=== PATIENT | male | born 1950 | race Caucasian/White ===

== ENCOUNTER 2018-01-29 18:17 | Inpatient (IN) | payer MEDICARE ==
[2018-01-29] MEDS ORDERED: DILTIAZEM DRIP BOLUS FROM BAG 1 MG SOLN IV ONE (18:57)
[2018-01-29] MEDS ORDERED: HEPARIN SODIUM,PORCINE 5,000 UNIT/ML 1 ML VIAL IV ONE (18:58)
[2018-01-29 19:13] LABS: Basophils % (A) 1 %; Eosinophils # (A) 0.1 k/uL (0-0.7); Eosinophils % (A) 1 %; HCT 44.8 % (39.0-53.0); HGB 15.2 gm/dL (13.0-17.5); Lymphocytes # (A) 1.9 k/uL (1.0-4.8); Lymphocytes % (A) 22 %; MCHC 33.9 g/dL (31.0-37.0); MCV 91.4 fL (80.0-100.0); Mean Platelet Volume 8.8; Monocytes # (A) 0.7 k/uL (0-1.0); Monocytes % (A) 8 %; Neutrophils # (A) 5.8 k/uL (1.3-7.7); Neutrophils % (A) 66 %; Platelet Count 209 k/uL (150-450); RDW 13.2 % (11.5-15.5); WBC 8.8 k/uL (3.8-10.6)
[2018-01-29 19:21] LABS: Calcium 9.3 mg/dL (8.4-10.2); Magnesium 2.1 mg/dL (1.6-2.3)
[2018-01-29] MEDS: HEPARIN SOD,PORK IN 0.45% NACL 25,000 UNIT in 0.45% NACL 1 500ML.BAG IV SCH (19:33)
[2018-01-29 19:40] LABS: Partial Thromboplastin Time 22.1 sec (22.0-30.0); Prothrombin Time 9.7 sec (9.0-12.0)
[2018-01-29] MEDS: DILTIAZEM 50 MG in SODIUM CHLORIDE 0.9% 40 ML IV SCH ×2 (19:45→23:21)
[2018-01-29] MEDS ORDERED: NALOXONE 0.4 MG/ML 1 ML VIAL IV PRN (20:00)
--- NOTE | 2018-01-29 20:15 | XR ---
EXAMINATION TYPE: XR chest 2V DATE OF EXAM: 01/29/2018 COMPARISON: NONE HISTORY: Abnormal cardiogram. Chest pain TECHNIQUE: Frontal and lateral views of the chest are obtained. FINDINGS: There is mild linear density at the left cardiac border. There is no heart failure. Heart size is normal. There are chest leads. There is no pleural effusion. Bony thorax is intact. IMPRESSION: Mild lingula scarring or subsegmental atelectasis that is increased compared to old exam . Normal heart.
--- NOTE | 2018-01-29 20:30 | ED ---
General Adult HPI - General Chief complaint: Recheck/Abnormal Lab/Rx Stated complaint: ABNORMAL EKG Source: patient Mode of arrival: ambulatory Limitations: no limitations - History of Present Illness Initial comments: Dictation was produced using [employer] dictation software. please excuse any grammatical, word or spelling errors. Chief Complaint: 67-year-old male presents with palpitations and abnormal EKG History of Present Illness:. 67-year-old male with past medical history of coronary artery disease, hypertension presents with abnormal EKG and palpitations since yesterday. Patient is not sure exactly when symptoms started. He was seen his primary care physician's office where an EKG was performed and is found to have new onset atrial fibrillation. Patient denies any history of A. fib past. He does not take any blood thinners. Denies any chest pain or shortness of breath. The ROS documented in this emergency department record has been reviewed and confirmed by me. Those systems with pertinent positive or negative responses have been documented in the HPI. All other systems are other negative and/or noncontributory. - Related Data Home Medications Medication Instructions Recorded Confirmed Aspirin 325 mg PO DAILY 01/29/18 01/29/18 Atorvastatin [Lipitor] 80 mg PO HS 01/29/18 01/29/18 Hydrochlorothiazide [Hydrodiuril] 25 mg PO DAILY 01/29/18 01/29/18 Lisinopril [Prinivil] 5 mg PO DAILY 01/29/18 01/29/18 Metoprolol Succinate (ER) [Toprol 25 mg PO BID 01/29/18 01/29/18 Xl] Allergies Allergy/AdvReac Type Severity Reaction Status Date / Time No Known Allergies Allergy Verified 01/29/18 18:26 Review of Systems ROS Statement: Those systems with pertinent positive or pertinent negative responses have been documented in the HPI. ROS Other: All systems not noted in ROS Statement are negative. Past Medical History Past Medical History: Coronary Artery Disease (CAD), Hypertension Additional Past Medical History / Comment(s): pt states "heart problems" but is unsure of what the name of it is History of Any Multi-Drug Resistant Organisms: None Reported Past Surgical History: Heart Catheterization With Stent Past Psychological History: No Psychological Hx Reported Smoking Status: Former smoker Past Alcohol Use History: None Reported Past Drug Use History: None Reported General Exam - General Exam Comments Initial Comments: PHYSICAL EXAM: General Impression: Alert and oriented x3, not in acute distress HEENT: Normocephalic atraumatic, extra-ocular movements intact, pupils equal and reactive to light bilaterally, mucous membranes moist. Cardiovascular: Irregularly irregular rhythm Chest: Lungs clear to auscultation bilaterally, no rhonchi, no wheeze, no rales Abdomen: Bowel sounds present, abdomen soft, non-tender, non-distended, no organomegaly Musculoskeletal: Pulses present and equal in all extremities, no peripheral edema Motor: Power 5/5 bilaterally, no focal deficits noted Neurological: CN II-XII grossly intact, no focal motor or sensory deficits noted Skin: Intact with no visualized rashes Psych: Normal affect and mood Limitations: no limitations Course Vital Signs 01/29/18 01/29/18 01/29/18 18:22 19:02 19:04 Temperature 97.9 F Pulse Rate 93 145 H Pulse Rate [ 144 H Drill Sharpener ] Respiratory 18 19 Rate Blood Pressure 141/99 135/67 O2 Sat by Pulse 98 98 Oximetry 01/29/18 01/29/18 19:45 20:12 Temperature Pulse Rate 114 H 100 Pulse Rate [ Drill Sharpener ] Respiratory 18 19 Rate Blood Pressure 144/74 123/59 O2 Sat by Pulse 98 98 Oximetry Medical Decision Making - Medical Decision Making ED course: 67-year-old male with past medical history of coronary artery disease and hypertension presents with clinical presentation consistent to acute onset atrial fibrillation. As upon arrival shows rate of 93. She was in the emergency department his heart rate jumped up into the 140s with irregularly irregular rhythm on the monitor. This is clinically consistent with atrial fibrillation with rapid ventricular rate. Patient had any chest pain. Laboratory evaluation obtained. CBC is unremarkable. Coag panel is unremarkable. His metabolic panel shows no acute abnormalities. Troponin is negative. X-ray of the chest shows mild lingular scarring or subsegmental atelectasis that is worse than previous exam. Patient does not have any infectious complaints. No cough, fever or chest pain. Patient initially started on heparin and Cardizem. Patient had be admitted to cardiac telemetry. Suspicion case with hospitalist was went except admission. EKG Interpretation: A 12 lead EKG was obtained. It was interpreted by myself and attending physician. There is a P wave before every QRS complex. Rate is 131. Rhythm is atrial fibrillation with rapid ventricular rate, QRS 120, QTc 525. . No ST segment depression or elevation. - Lab Data Result diagrams: 01/29/18 18:50 01/29/18 18:50 Lab Results 01/29/18 01/29/18 01/29/18 Range/Units 18:50 18:50 18:50 WBC 8.8 (3.8-10.6) k/uL RBC 4.90 (4.30-5.90) m/uL Hgb 15.2 (13.0-17.5) gm/dL Hct 44.8 (39.0-53.0) % MCV 91.4 (80.0-100.0) fL MCH 31.0 (25.0-35.0) pg MCHC 33.9 (31.0-37.0) g/dL RDW 13.2 (11.5-15.5) % Plt Count 209 (150-450) k/uL Neutrophils % 66 % Lymphocytes % 22 % Monocytes % 8 % Eosinophils % 1 % Basophils % 1 % Neutrophils # 5.8 (1.3-7.7) k/uL Lymphocytes # 1.9 (1.0-4.8) k/uL Monocytes # 0.7 (0-1.0) k/uL Eosinophils # 0.1 (0-0.7) k/uL Basophils # 0.0 (0-0.2) k/uL PT 9.7 (9.0-12.0) sec INR 1.0 (<1.2) APTT 22.1 (22.0-30.0) sec Sodium 141 (137-145) mmol/L Potassium 4.0 (3.5-5.1) mmol/L Chloride 104 (98-107) mmol/L Carbon Dioxide 23 (22-30) mmol/L Anion Gap 14 mmol/L BUN 20 (9-20) mg/dL Creatinine 1.22 (0.66-1.25) mg/dL Est GFR (CKD-EPI)AfAm 72 (>60 ml/min/1.73 sqM) Est GFR (CKD-EPI)NonAf 62 (>60 ml/min/1.73 sqM) Glucose 125 H (74-99) mg/dL Calcium 9.3 (8.4-10.2) mg/dL Magnesium 2.1 (1.6-2.3) mg/dL Troponin I (0.000-0.034) ng/mL 01/29/18 Range/Units 18:50 WBC (3.8-10.6) k/uL RBC (4.30-5.90) m/uL Hgb (13.0-17.5) gm/dL Hct (39.0-53.0) % MCV (80.0-100.0) fL MCH (25.0-35.0) pg MCHC (31.0-37.0) g/dL RDW (11.5-15.5) % Plt Count (150-450) k/uL Neutrophils % % Lymphocytes % % Monocytes % % Eosinophils % % Basophils % % Neutrophils # (1.3-7.7) k/uL Lymphocytes # (1.0-4.8) k/uL Monocytes # (0-1.0) k/uL Eosinophils # (0-0.7) k/uL Basophils # (0-0.2) k/uL PT (9.0-12.0) sec INR (<1.2) APTT (22.0-30.0) sec Sodium (137-145) mmol/L Potassium (3.5-5.1) mmol/L Chloride (98-107) mmol/L Carbon Dioxide (22-30) mmol/L Anion Gap mmol/L BUN (9-20) mg/dL Creatinine (0.66-1.25) mg/dL Est GFR (CKD-EPI)AfAm (>60 ml/min/1.73 sqM) Est GFR (CKD-EPI)NonAf (>60 ml/min/1.73 sqM) Glucose (74-99) mg/dL Calcium (8.4-10.2) mg/dL Magnesium (1.6-2.3) mg/dL Troponin I 0.017 (0.000-0.034) ng/mL Disposition Clinical Impression: Atrial fibrillation with rapid ventricular response Disposition: ADMITTED IP TO THIS HOSP Condition: Fair Referrals: Dominique Espinal DO [Primary Care Provider] - 1-2 days Decision Time: 20:30
[2018-01-29] MEDS: METOPROLOL SUCCINATE (ER) 25 MG TAB.ER.24H PO SCH (23:21)
[2018-01-29] MEDS: ATORVASTATIN 80 MG TAB PO SCH (23:21)
[2018-01-30 01:46] LABS: Basophils % (A) 0 %; Eosinophils # (A) 0.1 k/uL (0-0.7); Eosinophils % (A) 2 %; HCT 41.3 % (39.0-53.0); HGB 13.7 gm/dL (13.0-17.5); Lymphocytes # (A) 1.9 k/uL (1.0-4.8); Lymphocytes % (A) 27 %; MCH 30.8 pg (25.0-35.0); MCHC 33.2 g/dL (31.0-37.0); MCV 92.7 fL (80.0-100.0); Mean Platelet Volume 8.3; Monocytes # (A) 0.5 k/uL (0-1.0); Monocytes % (A) 7 %; Neutrophils # (A) 4.4 k/uL (1.3-7.7); Neutrophils % (A) 62 %; Platelet Count 175 k/uL (150-450); RBC 4.45 m/uL (4.30-5.90); RDW 13.7 % (11.5-15.5); WBC 7.1 k/uL (3.8-10.6)
[2018-01-30] MEDS: HEPARIN SODIUM,PORCINE 5,000 UNIT/ML 1 ML VIAL IV PRN ×2 (03:14→09:03)
[2018-01-30] MEDS: DILTIAZEM 50 MG in SODIUM CHLORIDE 0.9% 40 ML IV SCH ×2 (04:55→11:39)
[2018-01-30] MEDS: METOPROLOL SUCCINATE (ER) 25 MG TAB.ER.24H PO SCH (09:03)
[2018-01-30] MEDS: ASPIRIN 325 MG TAB PO SCH (09:03)
[2018-01-30] MEDS: LISINOPRIL 5 MG TAB PO SCH (09:03)
[2018-01-30] MEDS: HEPARIN SOD,PORK IN 0.45% NACL 25,000 UNIT in 0.45% NACL 1 500ML.BAG IV SCH (13:08)
--- NOTE | 2018-01-30 14:02 | P.CRDCN ---
History of Present Illness Consult date: 01/30/18 Chief complaint: Palpitations History of present illness: This is a pleasant 67-year-old gentleman who sees in the office on a regular basis with a past medical history significant for coronary artery disease and prior coronary artery stenting with unknown details at this point, hypertension, dyslipidemia, and obesity, was referred directly from his primary care physician office to the emergency room for further evaluation of atrial fibrillation. The patient was at his primary care physician office when he was complaining of palpitations. An EKG was performed and revealed A. fib with uncontrolled heart rate and the patient was sent directly to the emergency room. The patient denies having any chest pain or chest discomfort, difficulty breathing, but he was feeling the heart was racing. No dizziness or lightheadedness and no syncope. The EKG showed atrial fibrillation with RBBB. The first set of enzymes came in to be unremarkable. The chest x-ray did not show any acute abnormalities. The patient continues to be in A. fib with heart rate in the 90s. He is on Cardizem at 10 mg per hour. Also he is on metoprolol at 25 mg by mouth twice a day. I will increase the dose of metoprolol into 50 mg by mouth twice a day and try to wean him from the Cardizem drip. He is also on heparin for anticoagulation and I will start the patient on oral anticoagulation and DC the heparin drip. We'll get an echocardiogram was Doppler. Also get a TSH. As an outpatient I recommended the patient to be evaluated for sleep apnea. Past Medical History Past Medical History: Atrial Fibrillation, Coronary Artery Disease (CAD), Chest Pain / Angina, Diabetes Mellitus, Hypertension Additional Past Medical History / Comment(s): pt. states he had a-fib as a teenager, pre-diabetic, previous upper respiratory infection History of Any Multi-Drug Resistant Organisms: None Reported Past Surgical History: Heart Catheterization With Stent Past Anesthesia/Blood Transfusion Reactions: No Reported Reaction Date of Last Stent Placement:: 2007 Smoking Status: Former smoker - Past Family History Mother Family Medical History: Cancer Father Additional Family Medical History / Comment(s): atrial fibrillation Medications and Allergies Home Medications Medication Instructions Recorded Confirmed Type Aspirin 325 mg PO DAILY 01/29/18 01/29/18 History Atorvastatin [Lipitor] 80 mg PO HS 01/29/18 01/29/18 History Hydrochlorothiazide [Hydrodiuril] 25 mg PO DAILY 01/29/18 01/29/18 History Lisinopril [Prinivil] 5 mg PO DAILY 01/29/18 01/29/18 History Metoprolol Succinate (ER) [Toprol 25 mg PO BID 01/29/18 01/29/18 History Xl] Allergies Allergy/AdvReac Type Severity Reaction Status Date / Time No Known Allergies Allergy Verified 01/29/18 18:26 Physical Exam Vitals: Vital Signs Temp Pulse Pulse Pulse Resp BP BP 01/30/18 11:51 78 16 01/30/18 11:47 96.8 F L 78 16 01/30/18 11:46 96.8 F L 78 16 01/30/18 08:45 97.0 F L 75 16 119/68 01/30/18 08:41 73 16 01/30/18 05:05 72 18 123/59 01/30/18 01:00 97.9 F 88 18 135/80 01/29/18 21:05 96 20 01/29/18 21:00 98.8 F 84 18 133/66 01/29/18 20:55 98 F 100 20 129/75 01/29/18 20:12 100 19 123/59 01/29/18 19:45 114 H 18 144/74 01/29/18 19:04 145 H 19 135/67 01/29/18 19:02 144 H 01/29/18 18:22 97.9 F 93 18 141/99 BP BP Pulse Ox 01/30/18 11:51 01/30/18 11:47 130/64 98/51 100 01/30/18 11:46 130/64 100 01/30/18 08:45 99 01/30/18 08:41 01/30/18 05:05 98 01/30/18 01:00 100 01/29/18 21:05 01/29/18 21:00 99 01/29/18 20:55 97 01/29/18 20:12 98 01/29/18 19:45 98 01/29/18 19:04 98 01/29/18 19:02 01/29/18 18:22 98 Intake and Output 01/29/18 01/30/18 01/30/18 22:59 06:59 14:59 Intake Total 464.027 321.471 Balance 464.027 321.471 Intake: Intake, IV Titration 224.027 321.471 Amount Diltiazem 50 mg In Sodium 86 33.667 Chloride 0.9% 40 ml @ 10 MG/HR 10 mls/hr IV .Q5H [facility] Rx#:[id number] Heparin Sod,Pork in 0.45% 138.027 287.804 NaCl 25,000 unit In 0.45 % NaCl 1 500ml.bag @ 7.5 UNITS/KG/HR 19.86 mls/hr IV .Q24H [facility] Rx#: [id number] Oral 240 Other: Voiding Method Toilet Toilet Urinal # Voids 1 3 1 Weight 132.449 kg 133 kg - Constitutional General appearance: no acute distress - Respiratory Respiratory: bilateral: CTA - Cardiovascular Rhythm: irregularly irregular Heart sounds: normal: S1, S2 Results 01/30/18 01:35 01/29/18 18:50 Cardiac Enzymes 01/29/18 Range/Units 18:50 Troponin I 0.017 (0.000-0.034) ng/mL Coagulation 01/29/18 01/30/18 01/30/18 Range/Units 18:50 01:35 07:33 PT 9.7 (9.0-12.0) sec APTT 22.1 26.2 38.6 H (22.0-30.0) sec CBC 01/29/18 01/30/18 Range/Units 18:50 01:35 WBC 8.8 7.1 (3.8-10.6) k/uL RBC 4.90 4.45 (4.30-5.90) m/uL Hgb 15.2 13.7 (13.0-17.5) gm/dL Hct 44.8 41.3 (39.0-53.0) % Plt Count 209 175 (150-450) k/uL Comprehensive Metabolic Panel 01/29/18 Range/Units 18:50 Sodium 141 (137-145) mmol/L Potassium 4.0 (3.5-5.1) mmol/L Chloride 104 (98-107) mmol/L Carbon Dioxide 23 (22-30) mmol/L BUN 20 (9-20) mg/dL Creatinine 1.22 (0.66-1.25) mg/dL Glucose 125 H (74-99) mg/dL Calcium 9.3 (8.4-10.2) mg/dL Current Medications Generic Name Dose Route Start Last Admin Trade Name Zarina PRN Reason Stop Dose Admin Apixaban 5 mg 01/30/18 21:00 Eliquis PO BID [facility] Aspirin 325 mg 01/30/18 09:00 01/30/18 09:03 Aspirin PO 325 mg DAILY [facility] Administration Atorvastatin Calcium 80 mg 01/29/18 22:30 01/29/18 23:21 Lipitor PO 80 mg HS [facility] Administration Heparin Sodium (Porcine) 0 unit 01/29/18 18:58 01/30/18 09:03 Heparin IV 4,000 unit PER PROTOCOL PRN Administration Low PTT Protocol Diltiazem HCl 50 mg/ Sodium 50 mls @ 10 mls/hr 01/29/18 19:00 01/30/18 11:39 Chloride IV 10 mg/hr .Q5H [facility] 10 mls/hr Administration 10 MG/HR Lisinopril 5 mg 01/30/18 09:00 01/30/18 09:03 Zestril PO 5 mg DAILY [facility] Administration Metoprolol Succinate 50 mg 01/30/18 21:00 Toprol Xl PO BID [facility] Naloxone HCl 0.2 mg 01/29/18 20:00 Narcan IV Q2M PRN Opioid Reversal Intake and Output 01/29/18 01/30/18 01/30/18 22:59 06:59 14:59 Intake Total 464.027 321.471 Balance 464.027 321.471 Intake: Intake, IV Titration 224.027 321.471 Amount Diltiazem 50 mg In Sodium 86 33.667 Chloride 0.9% 40 ml @ 10 MG/HR 10 mls/hr IV .Q5H [facility] Rx#:[id number] Heparin Sod,Pork in 0.45% 138.027 287.804 NaCl 25,000 unit In 0.45 % NaCl 1 500ml.bag @ 7.5 UNITS/KG/HR 19.86 mls/hr IV .Q24H [facility] Rx#: [id number] Oral 240 Other: Voiding Method Toilet Toilet Urinal # Voids 1 3 1 Weight 132.449 kg 133 kg 01/30/18 01:35 01/29/18 18:50 Assessment and Plan Assessment: Assessment #1 A. fib with uncontrolled heart rates. This is a new onset A. fib #2 coronary artery disease and prior revascularization #3 obesity #4 hypertension Plan #1 increase the dose of metoprolol and try to wean the patient from Cardizem drip #2 DC heparin and start the patient on oral anticoagulation #3 obtain an echocardiogram was Doppler #4 TSH #5 sleep study as an outpatient Thank you for allowing us participate in his care
[2018-01-30] MEDS ORDERED: METOPROLOL SUCCINATE (ER) 25 MG TAB.ER.24H PO STA (14:10)
[2018-01-30] MEDS: INSULIN ASPART 100 UNIT/ML 1 ML 10 ML VIAL SQ SCH (18:39)
--- NOTE | 2018-01-30 18:43 | HP ---
HISTORY AND PHYSICAL DATE OF ADMISSION: 01/29/2018. DATE OF SERVICE: 01/30/2018 PRESENTING COMPLAINT: Heart racing. HISTORY OF PRESENTING COMPLAINT: This is a pleasant 67-year-old patient who follows with Dr. Espinal and stockroom worker Dr. Arita. Chronic stable medical conditions include coronary artery disease with stent in 2007, diabetes, hypertension. The patient presented through the ER and he is having palpitations since yesterday. He went to his PCP and on EKG he was found to have atrial fibrillation. He denies any prior any history of the same. The patient in the ER was found to be in about 130s with a right bundle branch block pattern and started on IV Cardizem and IV heparin. Denies any chest pain or pressure. Still a little bit tired and run down. Patient's is at the bedside. REVIEW OF SYSTEMS: CONSTITUTIONAL: None. HEENT: None. RESPIRATORY: None. CARDIOVASCULAR: As above. GASTROINTESTINAL: None. MUSCULOSKELETAL: None. DERMATOLOGICAL: None. HEMATOLOGIC: None. LYMPHATIC: None. PSYCHIATRY: None. NEUROLOGICAL: None. PAST MEDICAL HISTORY: Coronary artery disease, diabetes, hypertension, A. fib. as a teenager. Apparently patient is a prediabetic. PAST SURGICAL HISTORY: Cardiac cath with stent in 2007. SOCIAL HISTORY: The patient smoked, stopped smoking in 2007, smoked for about 35 years. . No alcohol. FAMILY HISTORY: Of cancer and atrial fibrillation. HOME MEDICATIONS: 1. Prinivil 5 mg a day. 2. Toprol-XL 25 mg b.i.d. 3. Hydrochlorothiazide 25 mg a day. 4. Lipitor 80 mg q.h.s. 5. Aspirin 325 mg a day. ALLERGIES: None. EXAMINATION: VITAL SIGNS: On presentation, temperature 97.9, pulse 140, respiration 18, blood pressure 141/99, pulse ox 98% on room air. GENERAL APPEARANCE: Well-built, BMI 39.8. Lying in bed, awake. EYES: Pupils equal. Conjunctivae normal. HEENT: External appearance of nose and ears normal. Oral cavity normal. NECK: JVD not raised. Mass not palpable. RESPIRATORY: Effort normal. LUNGS: Diminished breath sounds. CARDIOVASCULAR: Heart sounds irregular. No edema. ABDOMEN: Soft, nontender. Liver and spleen not palpable. LYMPHATIC: No lymph node palpable in neck or axillae. PSYCHIATRY: Alert and oriented x3. Mood and affect normal. NEUROLOGICAL: Pupils equal. Cranial nerves grossly intact. Power and sensation grossly intact. INVESTIGATIONS: White count 8.8, hemoglobin 15.2. Potassium 4, BUN and creatinine are normal. Troponin 0.017. TSH is 1.2. EKG: Right bundle branch block pattern with atrial fibrillation with rapid ventricular rate. Chest x-ray: Possible atelectasis. ASSESSMENT: 1. New onset atrial fibrillation with rapid ventricular rate in a patient with known coronary artery disease. 2. Coronary artery disease with prior history of a bypass and stents. 3. Prediabetic with a metabolic syndrome. 4. Essential hypertension. 5. Obesity, BMI 39.8. 6. Right bundle branch block. 7. Intravenous heparin monitoring. 8. IV Cardizem drip monitoring. PLAN: Patient is put on IV heparin and Cardizem drip in the ER. Plan today is to increase the dose of Toprol-XL to 50 mg twice a day and also put the patient on Eliquis. Care was discussed with the patient and at the bedside. Will have a dietitian to see the patient for his obesity. Will check patient's Accu-Cheks and a glycosylated hemoglobin. MMODL / IJN: [id number] /
[2018-01-30] MEDS ORDERED: ACETAMINOPHEN TAB 325 MG TAB PO PRN (20:25)
[2018-01-30] MEDS: METOPROLOL SUCCINATE (ER) 50 MG TAB.ER.24H PO SCH (20:58)
[2018-01-30] MEDS: ATORVASTATIN 80 MG TAB PO SCH (20:59)
[2018-01-30] MEDS: APIXABAN 5 MG TAB PO SCH (20:59)
[2018-01-31 05:55] LABS: Basophils % (A) 1 %; Eosinophils # (A) 0.2 k/uL (0-0.7); Eosinophils % (A) 3 %; HCT 40.7 % (39.0-53.0); HGB 13.3 gm/dL (13.0-17.5); Lymphocytes # (A) 1.3 k/uL (1.0-4.8); Lymphocytes % (A) 23 %; MCH 30.2 pg (25.0-35.0); MCHC 32.6 g/dL (31.0-37.0); MCV 92.5 fL (80.0-100.0); Mean Platelet Volume 8.9; Monocytes # (A) 0.5 k/uL (0-1.0); Monocytes % (A) 8 %; Neutrophils # (A) 3.6 k/uL (1.3-7.7); Neutrophils % (A) 63 %; Platelet Count 152 k/uL (150-450); RDW 13.1 % (11.5-15.5); WBC 5.6 k/uL (3.8-10.6)
[2018-01-31] MEDS: INSULIN ASPART 100 UNIT/ML 1 ML 10 ML VIAL SQ SCH ×2 (06:54→12:12)
[2018-01-31 08:29] VITALS: RESP 16
[2018-01-31] MEDS: ASPIRIN 325 MG TAB PO SCH (08:37)
[2018-01-31] MEDS: METOPROLOL SUCCINATE (ER) 50 MG TAB.ER.24H PO SCH (08:37)
[2018-01-31] MEDS: LISINOPRIL 5 MG TAB PO SCH (08:37)
[2018-01-31] MEDS: APIXABAN 5 MG TAB PO SCH (08:37)
--- NOTE | 2018-01-31 10:27 | P.PN ---
Subjective Progress Note Date: 01/31/18 Principal diagnosis: Paroxysmal atrial fibrillation This is a pleasant 67-year-old gentleman who sees in the office on a regular basis with a past medical history significant for coronary artery disease and prior coronary artery stenting with unknown details at this point, hypertension, dyslipidemia, and obesity, was referred directly from his primary care physician office to the emergency room for further evaluation of atrial fibrillation. The patient was at his primary care physician office when he was complaining of palpitations. An EKG was performed and revealed A. fib with uncontrolled heart rate and the patient was sent directly to the emergency room. The patient denies having any chest pain or chest discomfort, difficulty breathing, but he was feeling the heart was racing. No dizziness or lightheadedness and no syncope. The EKG showed atrial fibrillation with RBBB. The first set of enzymes came in to be unremarkable. The chest x-ray did not show any acute abnormalities. On follow-up with the patient today, he denies having any chest pain or discomfort or shortness of breath or heart racing or fluttering. He continues to be in atrial fibrillation with controlled heart rate. He underwent an echocardiogram yesterday which I will follow-up with him today. He continues to be on metoprolol for heart rate control and also I did start the patient yesterday on Eliquis for anticoagulation. Objective - Vital Signs Vital signs: Vital Signs Temp 98.1 F 01/31/18 08:22 Pulse 88 01/31/18 08:22 Resp 16 01/31/18 08:22 BP 119/71 01/31/18 08:22 Pulse Ox 100 01/31/18 08:22 Intake & Output 01/30/18 01/31/18 01/31/18 18:59 06:59 18:59 Intake Total 1355.471 480 10 Balance 1355.471 480 10 Weight 133.3 kg Intake: IV 314 10 Diltiazem 50 mg In Sodium 60 Chloride 0.9% 40 ml @ 10 MG/HR 10 mls/hr IV .Q5H [facility] Rx#:[id number] Heparin Sod,Pork in 0.45% 254 NaCl 25,000 unit In 0.45 % NaCl 1 500ml.bag @ 7.5 UNITS/KG/HR 19.86 mls/hr IV .Q24H [facility] Rx#: [id number] Invasive Line 1 10 Intake, IV Titration 321.471 Amount Diltiazem 50 mg In Sodium 33.667 Chloride 0.9% 40 ml @ 10 MG/HR 10 mls/hr IV .Q5H [facility] Rx#:[id number] Heparin Sod,Pork in 0.45% 287.804 NaCl 25,000 unit In 0.45 % NaCl 1 500ml.bag @ 7.5 UNITS/KG/HR 19.86 mls/hr IV .Q24H [facility] Rx#: [id number] Oral 720 480 Other: Voiding Method Urinal Urinal Toilet # Voids 1 2 1 - Constitutional General appearance: Present: no acute distress - Respiratory Respiratory: bilateral: CTA - Cardiovascular Rhythm: irregularly irregular Heart sounds: normal: S1, S2 - Labs CBC & Chem 7: 01/31/18 05:42 01/29/18 18:50 Assessment and Plan Assessment: Assessment #1 A. fib with uncontrolled heart rates. This is a new onset A. fib #2 coronary artery disease and prior revascularization #3 obesity #4 hypertension Plan #1 continue the current dose of metoprolol which was increased yesterday. #2 continue oral anticoagulation #3 the heart rate and blood pressure are within normal limits #4 the TSH was checked and came in to be within normal limits #5 sleep study as an outpatient #6 follow-up on the echocardiogram Thank you for allowing us participate in his care
[2018-01-31 11:36] LABS: Glucose,Whole Blood 108 mg/dL (75-99)
[2018-01-31 12:23] VITALS: BP 130/69; PULSE 77; TEMP 97
--- NOTE | 2018-01-31 14:36 | ECHOF ---
Referral Reason:a.fib MEASUREMENTS -------- HEIGHT: 182.9 cm WEIGHT: 132.9 kg BP: 130/64 RVIDd: 3.4 cm (< 3.3) IVSd: 1.1 cm (0.6 - 1.1) LVIDd: 5.7 cm (3.9 - 5.3) LVPWd: 1.1 cm (0.6 - 1.1) IVSs: 1.4 cm LVIDs: 3.7 cm LVPWs: 1.5 cm LAESV Index (A-L): 30.94 ml/m Ao Diam: 3.1 cm (2.0 - 3.7) AV Cusp: 2.0 cm (1.5 - 2.6) LA Diam: 4.3 cm (2.7 - 3.8) EPSS: 0.4 cm MV E Jw: 0.93 m/s MV DecT: 289 ms MV A Jw: 0.00 m/s MV E/A Ratio: 223.74 RAP: 5.00 mmHg RVSP: 10.95 mmHg MV EF SLOPE: 142.03 mm/s (70 - 150) MV EXCURSION: 2.37 cm (> 18.000) FINDINGS -------- Atrial fibrillation. This was a technically adequate study. The left ventricular size is normal. There is mild concentric left ventricular hypertrophy. Overa ll left ventricular systolic function is normal with, an EF between 55 - 60 %. The right ventricle is mildly enlarged. LA is midly dilated 29-33ml/m2. RA appears enlarged. There is mild aortic valve sclerosis. There is no evidence of aortic regurgitation. There is no e vidence of aortic stenosis. The mitral valve leaflets are mildly thickened. There is trace to mild mitral regurgitation. Trace tricuspid regurgitation present. Right ventricular systolic pressure is normal at < 35 mmHg. There is no evidence of pulmonary hypertension. The pulmonic valve was not well visualized. The aortic root size is normal. IVC Not well visulized. There is no pericardial effusion. CONCLUSIONS -------- 1. Atrial fibrillation. 2. This was a technically adequate study. 3. The left ventricular size is normal. 4. There is mild concentric left ventricular hypertrophy. 5. Overall left ventricular systolic function is normal with, an EF between 55 - 60 %. 6. The right ventricle is mildly enlarged. 7. LA is midly dilated 29-33ml/m2. 8. RA appears enlarged. 9. There is mild aortic valve sclerosis. 10. The mitral valve leaflets are mildly thickened. 11. There is trace to mild mitral regurgitation. 12. Trace tricuspid regurgitation present. 13. Right ventricular systolic pressure is normal at < 35 mmHg. 14. There is no evidence of pulmonary hypertension. 15. The pulmonic valve was not well visualized. 16. The aortic root size is normal. 17. IVC Not well visulized. 18. There is no pericardial effusion. COMMUNITY SERVICES OFFICER: Tam Chiang RDCS
--- NOTE | 2018-01-31 23:08 | DS ---
DISCHARGE SUMMARY DATE OF ADMISSION: January 29, 2018 DATE OF DISCHARGE: January 31, 2018. FINAL DIAGNOSES: 1. New onset atrial fibrillation, rapid ventricular rate. 2. Coronary artery disease with prior history of coronary artery bypass and stent. 3. Prediabetic metabolic syndrome. 4. Essential hypertension. 5. Obesity; BMI 39.8. 6. Right bundle branch block. 7. IV heparin monitoring. 8. IV Cardizem monitoring. HOSPITAL COURSE: This patient presented with new onset atrial fibrillation with rapid ventricular rate. Heart rate was better controlled. By the time of discharge, no symptoms. 2D echocardiogram showed preserved LV function. Today patient is up and about, no further symptoms. On examination, lungs are clear. Cardiovascular: Heart sounds irregular. Care was discussed with Dr. See. The patient's Eliquis, weight loss measures were discussed at length. Discussion and discharge planning more than 35 minutes. DISCHARGE MEDICATIONS: 1. Lipitor 80 mg q.h.s. 2. Prinivil 5 mg a day. 3. Eliquis 5 mg b.i.d. 4. Aspirin 81 mg a day. 5. Toprol-XL 50 mg p.o. b.i.d. Discontinued medications: Hydrochlorothiazide and aspirin. Follow up with Dr. Arita in 1 week, follow up with Dr. Dominique Espinal in [address] Dominique Espinal. MMODL / IJN: [id number] /
[2018-02-01] MEDS ORDERED: ASPIRIN 81 MG PO SCH (09:00)
[2018-02-01 15:56] LABS: Hemoglobin A1C 6.4 % (4.0-6.0)
== END 2018-01-31 14:56 | disposition home or self-care (01) | DRG 310 ==
LOC: EC 18:17 → 6SEL 20:22
PROVIDERS: ADMIT Hospitalist; ATTEND Hospitalist
DX: I48.0 Paroxysmal atrial fibrillation (principal); E66.9 Obesity, unspecified; I10 Essential (primary) hypertension; I25.10 Atherosclerotic heart disease of native coronary artery without angina pectoris; I45.10 Unspecified right bundle-branch block; R73.03 Prediabetes; Z68.39 Body mass index [BMI] 39.0-39.9, adult; Z79.82 Long term (current) use of aspirin; Z79.899 Other long term (current) drug therapy; Z87.891 Personal history of nicotine dependence; Z95.1 Presence of aortocoronary bypass graft; Z95.5 Presence of coronary angioplasty implant and graft; Z80.9 Family history of malignant neoplasm, unspecified; Z82.49 Family history of ischemic heart disease and other diseases of the circulatory system
CPT/HCPCS: 36415; 71046; 80048; 83036; 83735; 84443; 84484; 85025; 85610; 85730; 93005; 93306; 96365; 96375; 96376; 99285